=== PATIENT | female | born 1995 | race Caucasian/White ===

== ENCOUNTER 2020-07-11 17:48 | Emergency (ER) | payer OTHER, SELFPAY ==
--- NOTE | 2020-07-11 17:50 | ED.GENADULT ---
HPI - General Adult General Chief complaint: Medical Clearance Stated complaint: covid Time Seen by Provider: 07/11/20 17:49 Source: patient Mode of arrival: ambulatory Limitations: no limitations History of Present Illness HPI narrative: grandmother has COVID patient wants testing she is asymptomatic MD complaint: covid exposure Onset (ago): day(s) (3) Severity: mild Relieving factors: none Exacerbating factors: none Associated symptoms: denies other symptoms Treatments prior to arrival: none Related Data Allergies Allergy/AdvReac Type Severity Reaction Status Date / Time ondansetron [From ZOFRAN] Allergy Unknown HIVES Unverified 11/06/19 17:50 No Known Allergies Allergy Unverified 11/06/19 17:07 Bees Allergy Unknown Uncoded 08/11/19 00:00 latex Allergy Unknown Uncoded 08/11/19 00:00 Sulfa Allergy Unknown Uncoded 08/11/19 00:00 Review of Systems Review of Systems: Constitutional : No Fever, No Chills, Cardiovascular : No Chest Pain, No SOB Respiratory : No Dyspnea Gastrointestinal : No abdominal pain Musculoskeletal : No Joint Swelling Skin : No rash, no skin laceration Neuro : No Weakness, No Numbness Psych : No SI/HI PMFSH Past Medical History Attestation statement: The following information was validated with the patient. Medical History No acute medical problems Social History Social History (Updated 07/11/20 @ 17:59 by Carmella Khalil DO) Smoking Status: Never smoker Advance Directives: No Advance Directives Information Provided: Yes Patient : No Physical Exam Vital Signs: Vital Signs: Last Vital Signs Resp 18 07/11/20 17:56 Body Mass Index 23.4 Appearance: Alert. Oriented X3. No acute distress. Eyes: Pupils equal, round and reactive to light. ENT: Pharynx normal. Neck: Normal inspection. Neck supple. CVS: Normal heart rate and rhythm. Pulses normal. Respiratory: No respiratory distress. Breath sounds normal. Abdomen: Soft and non-tender. Skin: Skin warm and dry. Normal skin color. Extremities: No lower extremity edema. Neuro: Oriented X 3. No motor deficit. No sensory deficit. Medical Decision Making MDM Narrative Medical decision making narrative: 24 yo female asymptomatic COVID exposure here for testing Lab Data Labs: Lab Results 07/11/20 Range/Units 18:04 COVID-19 (YULISSA) Negative (Negative) COVID-19 Clin Com See Note Discharge Plan Discharge Clinical Impression: Close exposure to 2019-nCoV Patient Disposition: Home, Self-Care Instructions: COVID-19 (Coronavirus Disease 2019) (ED) Additional Instructions: return to ED for any worsening symptoms or concerns COVID test negative, if symptomatic or symptoms worse repeat test in 3 days Stand Alone Forms: Work/School Release
[2020-07-11 17:56] VITALS: RESP 18; BMI 23.4
[2020-07-11 18:24] LABS: COVID-19 Test Negative (Negative)
== END 2020-07-11 19:45 | disposition home or self-care (01) ==
PROVIDERS: Emergency Provider Emergency Medicine
DX: Z20.822 Contact with and (suspected) exposure to COVID-19 (principal)
CPT/HCPCS: 36415; 87635; 99282